=== PATIENT | female | born 1965 | race Caucasian/White ===

== ENCOUNTER 2016-12-31 08:52 | Inpatient (IN) | payer MEDICAID, OTHER ==
[~2016-12-31] VITALS: Wt 80.0 kg
[2016-12-31] MEDS ORDERED: NITROGLYCERIN 2% 1 GM OINT PKT TD STA (09:32)
[2016-12-31] MEDS ORDERED: FERR325C PO (09:57)
[2016-12-31] MEDS ORDERED: OMEP40CA6 PO (09:57)
--- NOTE | 2016-12-31 09:57 | RADRPT ---
PROCEDURE: XR Chest AP portable CLINICAL INDICATION: Chest pain TECHNIQUE: An AP portable radiograph of the chest was submitted. COMPARISON: None. FINDINGS: Support Hardware: None Cardiovascular: The cardiovascular silhouette appears unremarkable. Lung Solo: The lung solo appear clear with no nodule, alveolar infiltrate, or interstitial promi nence evident. Pleural Spaces: No pneumothorax or pleural effusion is identified. Osseous Structures: The osseous structures appear intact. Soft Tissues: The soft tissues appear generous. IMPRESSION: Unremarkable portable chest. Physician Cornell Date Time Electronically viewed and signed by Hayley Drummond Physician on 12/31/2016 09:57 RH/
[2016-12-31] MEDS ORDERED: FLUT16SP17 NASAL (09:58)
[2016-12-31] MEDS ORDERED: INSU100C SQ (09:58)
[2016-12-31] MEDS ORDERED: GLIP-95 PO (09:59)
[2016-12-31] MEDS ORDERED: LANT3I SC (09:59)
[2016-12-31] MEDS ORDERED: ATOR20TA38 PO (10:00)
[2016-12-31] MEDS ORDERED: MTF1000T PO (10:00)
[2016-12-31] MEDS ORDERED: NITROGLYCERIN (SL) 0.4 MG TAB SL PRN ×2 (10:00→15:30)
[2016-12-31] MEDS ORDERED: LOSA1TAB21 PO (10:03)
[2016-12-31 10:17] LABS: ADD SCAN DIFF NO
[2016-12-31 10:21] LABS: BASOPHILS % 0.3 % (0.0-2.0); EOSINOPHILS # 0.2 10^3/ul (0.0-0.5); EOSINOPHILS % 1.9 % (0.0-7.0); HEMATOCRIT 34.6 % (37.0-47.0); HEMOGLOBIN 10.4 g/dl (12.0-16.0); LYMPHOCYTES # 2.1 10^3/ul (0.8-2.9); LYMPHOCYTES % 26.6 % (15.0-51.0); MEAN CORPUSCULAR HEMOGLOBIN 22.5 pg (29.0-33.0); MEAN CORPUSCULAR HGB CONC 30.1 g/dl (32.0-37.0); MEAN CORPUSCULAR VOLUME 74.7 fl (82.0-101.0); MEAN PLATELET VOLUME 10.6 fl (7.4-10.4); MONOCYTE # 0.6 10^3/ul (0.3-0.9); MONOCYTES % 8.1 % (0.0-11.0); NEUTROPHIL # 4.9 10^3/ul (1.6-7.5); NEUTROPHILS % 62.5 % (39.0-77.0); PLATELET COUNT 361 10^3/UL (140-415); RED BLOOD COUNT 4.63 10^6/ul (4.20-5.40); RED CELL DISTRIBUTION WIDTH 14.3 % (11.5-14.5); WHITE BLOOD COUNT 7.9 10^3/ul (4.8-10.8)
--- NOTE | 2016-12-31 10:30 | RADRPT ---
PROCEDURE: CT Brain without contrast. CLINICAL INDICATION: Right face and arm numbness for 3 weeks. Headache TECHNIQUE: A multiplanar CT of the brain was performed on a CT scanner utilizing axial imaging fro m the skull base through the vertex without IV contrast. The CTDIvol is 39.15 mGy and the DLP is 55 4.95 mGycm. One or more of the following dose reduction techniques were utilized: Automated exposu re control, adjustment of the mA and/or kV according to patient size, use of iterative reconstructio n technique. COMPARISON: None FINDINGS: No evidence of intracranial hemorrhage or abnormal extra-axial fluid collection. The brain parenchyma is normal attenuation morphology with preservation of boyle white differentiatio n and age appropriate size of the ventricles and subarachnoid spaces. The basal cisterns, posterior fossa contents, brainstem, craniocervical junction, orbits, pituitary axis, paranasal sinuses, mastoid air cells, and calvarium are unremarkable. IMPRESSION: 1. No intracranial hemorrhage or acute intracranial abnormality. 2. Early ischemic injury may be occult to CT imaging and diffusion weighted MRI may be considered as clinically warranted. RPTAT:AAJJ Physician Imtiaz Date Time Electronically viewed and signed by Physician Imtiaz on 12/31/2016 10:30 CHU/
[2016-12-31 10:33] LABS: CHLORIDE 101 mmol/L (97-110); INR 0.99; PARTIAL THROMBOPLASTIN TIME 26.9 Sec (25.0-35.0); POTASSIUM 4.2 mmol/L (3.5-5.1); PROTIME 13.1 Sec (12.2-14.2); SODIUM 139 mmol/L (135-144)
[2016-12-31 10:35] LABS: CREATININE 0.43 mg/dl (0.44-1.00)
[2016-12-31 10:36] LABS: ANION GAP 15 (8-16); BLOOD UREA NITROGEN 11 mg/dl (7-20); CALCIUM 8.9 mg/dl (8.4-10.2); CARBON DIOXIDE 27 mmol/L (21-31); GLUCOSE 226 mg/dl (70-220)
[2016-12-31] MEDS ORDERED: ASPIRIN 81 MG TAB PO ONE (11:00)
[2016-12-31 11:02] LABS: TROPONIN-I < 0.010 ng/ml (0.00-0.12)
[2016-12-31] MEDS ORDERED: ACETAMINOPHEN 325 MG TAB PO PRN (11:30)
[2016-12-31] MEDS ORDERED: ONDANSETRON 4 MG INJ IV PRN (11:30)
--- NOTE | 2016-12-31 12:42 | ERA ---
ER Documentation Chief Complaint Date/Time DATE: 12/31/16 TIME: 12:39 Chief Complaint HEADACHE FOR 1 MONTH WITH R SIDE MENDOZA AND R EYE REDNESS. NO TRAUMA HPI Patient is a 51-year-old female with hypertension and diabetes who presents with chest pain and headache. 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 She also started with chest pain in the midsternal area which radiates to the left shoulder. Patient has no fevers. Her primary doctor is Dr. Joseph. ROS All systems reviewed and are negative except as per history of present illness. Medications Home Meds Reported Medications Losartan-Hydrochlorothiazide (Losartan-HCTZ) 100-12.5 Mg Tab, 1 TAB PO DAILY, TAB 12/31/16 Atorvastatin Calcium* (Atorvastatin Calcium*) 20 Mg Tablet, 20 MG PO QHS, #30 TAB 12/31/16 Metformin* (Glucophage*) 1,000 Mg Tablet, 1000 MG PO BID, #60 TAB 12/31/16 Glipizide* (Glipizide*) 10 Mg Tablet, 10 MG PO BID, TAB 12/31/16 Insulin Glargine* (Lantus*) 100 Unit/Ml Soln, 30 UNIT SC QHS, #1 VIAL 12/31/16 Fluticasone Propionate* (Fluticasone Propionate* Nasal) 50 Mcg/[place] - 16 Gm [place].susp, 1 SPRAY NASAL DAILY, #1 BOTTLE TO EACH NOSTRIL 12/31/16 Insulin Lispro (Humalog) 100 Unit/1 Ml Cartridge, 15 UNIT SQ TID 12/31/16 Omeprazole* (Omeprazole*) 40 Mg Capsule.dr, 40 MG PO DAILY, #30 CAP 12/31/16 Ferrous Sulfate (Iron) 325 Mg Capsule.er, 325 MG PO DAILY, CAP 12/31/16 Allergies Allergies: Coded Allergies: No Known Allergy (Unverified , 12/31/16) PMhx/Soc Medical and Surgical Hx: pt denies Surgical Hx History of Surgery: No Hx Cardiac Disorders: Yes (HTN) Hx Miscellaneous Medical Probl: Yes (DM) Hx Alcohol Use: No Hx Substance Use: No Hx Tobacco Use: No Smoking Status: Never smoker FmHx Family History: coronary disease Physical Exam Vitals Vital Signs Date Time Temp Pulse Resp B/P Pulse Ox O2 Delivery O2 Flow Rate FiO2 12/31/16 08:56 98.4 63 20 209/100 100 Physical Exam Const: Mild distress Head: Atraumatic Eyes: Normal Conjunctiva ENT: Normal External Ears, Nose and Mouth. Neck: Full range of motion..~ No meningismus. Resp: Clear to auscultation bilaterally Cardio: Regular rate and rhythm, no murmurs Abd: Soft, non tender, non distended. Normal bowel sounds Skin: No petechiae or rashes Back: No midline or flank tenderness Ext: No cyanosis, or edema Neur: Awake and alert Psych: Normal Mood and Affect Result Diagram: 12/31/1610 12/31/1610 Results 24 hrs Laboratory Tests Test 12/31/16 09:10 Activated Partial Thromboplast Time 26.9Sec Anion Gap 15 Basophils # 0.010^3/ul Basophils % 0.3% Blood Urea Nitrogen 11mg/dl Calcium Level 8.9mg/dl Carbon Dioxide Level 27mmol/L Chloride Level 101mmol/L Creatinine 0.43mg/dl Eosinophils # 0.210^3/ul Eosinophils % 1.9% Glucose Level 226mg/dl Hematocrit 34.6% Hemoglobin 10.4g/dl INR International Normalized Ratio 0.99 Lymphocytes # 2.110^3/ul Lymphocytes % 26.6% Mean Corpuscular Hemoglobin 22.5pg Mean Corpuscular Hemoglobin Concent 30.1g/dl Mean Corpuscular Volume 74.7fl Mean Platelet Volume 10.6fl Monocytes # 0.610^3/ul Monocytes % 8.1% Neutrophils # 4.910^3/ul Neutrophils % 62.5% Nucleated Red Blood Cells # 0.010^3/ul Nucleated Red Blood Cells % 0.0/100WBC Platelet Count 83511^3/UL Potassium Level 4.2mmol/L Prothrombin Time 13.1Sec Prothrombin Time Ratio 1.0 Red Blood Count 4.6310^6/ul Red Cell Distribution Width 14.3% Sodium Level 139mmol/L Troponin I < 0.010ng/ml White Blood Count 7.910^3/ul Current Medications Medications (Trade) Dose Ordered Sig/Cassy Route PRN Reason Start Time Stop Time Status Last Admin Dose Admin Nitroglycerin (Nitroglycerin 2% Oint) 1 inch ONCE STAT TD 12/31/16 09:32 12/31/16 09:33 DC 12/31/16 09:55 Nitroglycerin (Nitroglycerin (Sl Tab) 0.4 Mg) 1 tab Q5M UP TO 3 DOSES PRN SL CHEST PAIN 12/31/16 10:00 Aspirin (Aspirin) 162 mg ONCE ONCE PO 12/31/16 11:00 12/31/16 11:01 DC 12/31/16 11:12 Ondansetron HCl (Zofran Inj) 4 mg ER BRIDGE PRN IV NAUSEA AND/OR VOMITING 12/31/16 11:30 01/01/17 11:29 Acetaminophen (Tylenol Tab) 650 mg ER BRIDGE PRN PO MILD PAIN/FEVER 12/31/16 11:30 01/01/17 11:29 Procedures/MDM EKG #1 read by me: Rate/Rhythm: Regular rate and rhythm at a rate of 59 Intervals: Normal Impression: Sinus bradycardia without ischemia EKG #2 pending at this time CT brain and chest x-ray negative per radiology. Patient is a 51-year-old female with cardiac risk factors who presents with chest pain and headache. I am concerned about possible acute coronary syndrome. The patient will be admitted to the panel team as she has preferred [employer] insurance. I spoke with Dr. Menon who will admit the patient. The patient was given aspirin and nitroglycerin. The patient will be admitted to a telemetry bed. She has hyperglycemia but no signs of diabetic ketoacidosis. She has anemia but does not require transfusion. At this point I doubt pneumonia, pneumothorax, pulmonary embolism, or aortic dissection. Departure Diagnosis: Primary Impression: Chest pain Qualified Code: R07.9 - Chest pain, unspecified type Additional Impression: Headache Qualified Code: R51 - Acute nonintractable headache, unspecified headache type Condition: BRIAN Costello MD Dec 31, 2016 12:42
[2016-12-31] MEDS ORDERED: ACETAMINOPHEN 650 MG SUPP PR PRN (15:30)
[2016-12-31] MEDS ORDERED: morphine 2 MG INJ IV PRN (15:30)
[2016-12-31] MEDS ORDERED: NACL 0.9% 3 ML SYG IV SCH (15:30)
[2016-12-31] MEDS ORDERED: ONDANSETRON 4 MG TAB PO PRN (15:30)
[2016-12-31] MEDS ORDERED: DOCUSATE SODIUM 100 MG CAP PO PRN (15:30)
[2016-12-31] MEDS ORDERED: HYDROCODONE/APAP (5/325) TAB PO PRN (15:30)
[2016-12-31 16:10] LABS: CREATINE KINASE 26 IU/L (23-200)
[2016-12-31 16:29] LABS: CK-MB < 0.22 ng/ml (0.0-2.4); TROPONIN-I < 0.010 ng/ml (0.00-0.12)
--- NOTE | 2016-12-31 16:38 | RADRPT ---
PROCEDURE: US Carotids. CLINICAL INDICATION: bruit , TIA, headache TECHNIQUE: Multiple sonographic of the carotid bifurcation region and vertebral arteries were obta ined utilizing boyle scale, duplex and color-flow imaging. The images were reviewed on a PACS worksta tion. COMPARISON: No prior studies are available for comparison. FINDINGS: Evaluation of the right carotid bifurcation region reveals no significant calcific atherosclerotic d isease. Evaluation of the left carotid bifurcation region reveals no significant calcific atherosclerotic di sease. There is antegrade flow within the vertebral arteries bilaterally. RIGHT CAROTID MEASUREMENTS: Common Carotid Apipgn43.1 (cm/sec) Internal Carotid Artery - ytpuifjw99.5 (cm/sec) Internal Carotid Artery - mid72.8 (cm/sec) Internal Carotid Artery - koqibe56.3 (cm/sec) Internal Carotid/Common Carotid1.49 LEFT CAROTID MEASUREMENTS: Common Carotid Ufcizg01.6 (cm/sec) Internal Carotid Artery - tzcylfxm40.2 (cm/sec) Internal Carotid Artery - mid55.8 (cm/sec) Internal Carotid Artery - esfhks44 (cm/sec) Internal Carotid/Common Carotid0.88 RPTAT: AA IMPRESSION: No evidence for hemodynamically significant stenosis in the bilateral internal carotid arteries - va lidated velocity measurements with angiographic measurements, velocity criteria are extrapolated fro m diameter data as defined by the Society of Radiologists in Ultrasound Consensus Conference Radiolo gy 2003; 229;340-346. This study does indirectly reference the measurement of the distal ICA diamet er as the denominator for stenosis measurement. Normal antegrade flow in the vertebral arteries bilaterally. .Derrick Love MD, Date Time Electronically viewed and signed by .Derrick Love MD, MD on 12/31/2016 16:38 .S/
[2016-12-31 17:00] VITALS: BP 185/88; PULSE 65; RESP 16
[2016-12-31 17:10] VITALS: PULSE 61
[2016-12-31] MEDS: metFORMIN 500 MG TAB PO SCH (17:55)
[2016-12-31] MEDS: INSULIN ASPART [NOVOLOG] 3 ML PEN SC SCH ×3 (17:55→21:51)
[2016-12-31] MEDS ORDERED: GLUCAGON 1 MG INJ IM PRN (18:00)
[2016-12-31] MEDS ORDERED: GLUCOSE GEL 15 GRAM TUBE BUCCAL PRN (18:00)
[2016-12-31] MEDS ORDERED: FERROUS SULFATE (EC) 325 MG TAB PO SCH (18:00)
[2016-12-31] MEDS: METOPROLOL 25 MG TAB PO SCH (18:00)
[2016-12-31] MEDS ORDERED: DEXTROSE 50% 50 ML SYRINGE IV PRN ×2 (18:00)
[2016-12-31] MEDS ORDERED: GLUCOSE GEL 15 GRAM TUBE PO PRN ×2 (18:00)
[2016-12-31 20:00] VITALS: BP 170/84; RESP 18
[2016-12-31 20:08] VITALS: PULSE 66
--- NOTE | 2016-12-31 20:43 | HP ---
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 CHIEF COMPLAINT: Right-sided headache and right eye pain. HISTORY OF PRESENT ILLNESS: This is a 51-year-old female with past medical history of hypertension, diabetes mellitus, dyslipidemia, morbid obesity, GERD, postnasal drip, anemia, who complained of coronado ving right-sided headache with eye discomfort without any change in visual acuity. Patient went to see her primary care physician, and he was not around today; therefore, she came to the emergency ro om at [facility]. She was found to have a negative troponin. EKG showed regular rhythm and rate of 59, normal sinus tachycardia without any ischemia. CT of the brain was obtained, which demonstrated no intracranial hemorrhage or acute intracranial abnormality, early ischemic inj ury maybe occult to the CT imaging and diffusion weight MRI may be considered. Patient was also fou nd to have blood pressure of 209/100 and was treated with aspirin and nitroglycerin during the cours e of the emergency room. At this time, patient denies having any chest pain, shortness of breath, n ausea, vomiting, diarrhea. She does complain of having headache without any change in visual acuity . No diplopia, no upper extremity weakness or loss of sensory. No shortness of breath, no abdomina l pain. No dysuria, hematuria, urgency, incontinence. No neck pain, no restricted range of motion in upper and lower extremity or any other discomfort. PAST MEDICAL AND SURGICAL HISTORY: As above per HPI. MEDICATIONS: 1. Lipitor 20 mg. 2. Ferrous sulfate 325 mg 3. Fluconazole 1 spray. 3. Glipizide 10 mg. 4. Losartan/hydrochlorothiazide 100/12.5. 5. Lantus 30 units. 6. Lispro 15 units. 7. Metformin 1000 mg. 8. Omeprazole 40 mg. ALLERGIES: NO KNOWN DRUG ALLERGIES. FAMILY HISTORY: Positive for hypertension, diabetes mellitus, or dyslipidemia. SOCIAL HISTORY: Negative x3 for smoking, alcohol, illicit drugs. REVIEW OF SYSTEMS: As above per HPI. Otherwise, the 12 review of systems has been found to be nega tive. PHYSICAL EXAMINATION: VITAL SIGNS: Temperature 98.4, pulse 71, respirations 18, blood pressure at this time 131/71, oxyge n saturation 98% in room air. GENERAL APPEARANCE: The patient is lying in bed comfortably without any distress. She is awake, al ert, oriented. She is able to answer my questions properly. Body habitus morbidly obese. EYES AND ENT: Conjunctivae are mildly red, but the right eye extraocular motor is normal. Pupils a re reactive to light bilaterally. Oral mucosa is moist. NECK: Supple. Trachea is midline. No lymphadenopathy. RESPIRATORY: Effort is normal. Clear to auscultation bilaterally. CARDIOVASCULAR: Normal S1, S2. Regular rhythm and rate. No murmurs; ____ no edema. Peripheral pu lses, radial pulses palpable. Cap refill is normal. CHEST: Normal expansion of thorax during inspiration. GASTROINTESTINAL: Abdomen is soft, nontender, not distended. Bowel sounds present. No guarding, n o rebound. GENITOURINARY: Deferred. MUSCULOSKELETAL: Upper and lower extremities within normal limits. Full range of motion. Strength 5/5 in both upper and lower extremities. NEUROLOGIC: Cranial nerves II through XII grossly intact. PSYCHIATRIC: She is awake, alert, oriented. LABORATORY WORK AND IMAGING: Sodium 139, potassium 4.2, chloride 101, bicarbonate 27, BUN 11, creat inine 0.42, glucose 226, calcium 8.9. Troponin negative. WBC 7.9, hemoglobin 10.5, hematocrit 34.6 , platelets 361, MCV 74.7. ASSESSMENT AND PLAN: 1. Atypical chest pain with history of diabetes mellitus, hypertension, dyslipidemia. We will obta in a 2D echocardiogram, serial troponin. Continue to monitor patient's blood pressure. Continue bl ood pressure medication and management. Patient has been started on aspirin. Continue statin. Fol low up lipid panel. 2. Intractable headache with a negative CT of the ____. We will obtain MRI of the brain. Continue to monitor patient's blood pressure. 3. Dyslipidemia. Continue statin. 4. Diabetes mellitus. Continue Lantus and insulin sliding scale, low carbohydrate diet. 5. Gastroesophageal reflux disease. Continue proton pump inhibitor. 6. Microcytic anemia. Follow up iron panel. Continue ferrous sulfate. 7. For deep venous thrombosis prophylaxis, on Lovenox. 8. Will continue to monitor patient closely. Further recommendations, management, and treatment as per clinical course. Dictated By: JB ADAMS/SHERRIE Conf#: [id number] DID#: [id number]
[2016-12-31] MEDS ORDERED: INSULIN GLARGINE [LANtus] 3 ML PEN SC SCH (21:00)
[2016-12-31] MEDS ORDERED: ATORVASTATIN 20 MG TAB PO SCH (21:00)
[2016-12-31] MEDS: ACETAMINOPHEN 325 MG TAB PO PRN (22:43)
[2016-12-31 22:50] LABS: CREATINE KINASE 28 IU/L (23-200)
[2016-12-31 23:09] LABS: CK-MB < 0.22 ng/ml (0.0-2.4)
[2016-12-31 23:10] LABS: TROPONIN-I < 0.012 ng/ml (0.00-0.12)
[2016-12-31 23:41] VITALS: PULSE 54
[2017-01-01] VITALS (9 sets, daily range): BP systolic 134–155; BP diastolic 63–82; PULSE 48–71; RESP 18–19
[2017-01-01 03:22] LABS: ADD SCAN DIFF NO
[2017-01-01 03:24] LABS: BASOPHILS % 0.2 % (0.0-2.0); EOSINOPHILS # 0.2 10^3/ul (0.0-0.5); EOSINOPHILS % 2.8 % (0.0-7.0); HEMOGLOBIN 9.5 g/dl (12.0-16.0); LYMPHOCYTES # 2.8 10^3/ul (0.8-2.9); LYMPHOCYTES % 32.1 % (15.0-51.0); MEAN CORPUSCULAR HEMOGLOBIN 22.6 pg (29.0-33.0); MEAN CORPUSCULAR HGB CONC 30.6 g/dl (32.0-37.0); MEAN CORPUSCULAR VOLUME 73.8 fl (82.0-101.0); MEAN PLATELET VOLUME 9.4 fl (7.4-10.4); MONOCYTE # 0.8 10^3/ul (0.3-0.9); MONOCYTES % 9.3 % (0.0-11.0); NEUTROPHIL # 4.7 10^3/ul (1.6-7.5); NEUTROPHILS % 55.1 % (39.0-77.0); PLATELET COUNT 311 10^3/UL (140-415); RED CELL DISTRIBUTION WIDTH 14.5 % (11.5-14.5); WHITE BLOOD COUNT 8.6 10^3/ul (4.8-10.8)
[2017-01-01 03:54] LABS: POTASSIUM 4.1 mmol/L (3.5-5.1)
[2017-01-01 03:56] LABS: CREATININE 0.47 mg/dl (0.44-1.00)
[2017-01-01 03:57] LABS: CALCIUM 8.9 mg/dl (8.4-10.2); CHOL/HDL RATIO 5.1 RATIO; IRON 21 ug/dl (35-150)
[2017-01-01 03:58] LABS: CREATINE KINASE 26 IU/L (23-200)
[2017-01-01 04:07] LABS: TOTAL IRON BINDING CAPACITY 470 ug/dl (241-421)
[2017-01-01 04:23] LABS: CK-MB < 0.22 ng/ml (0.0-2.4); TROPONIN-I < 0.012 ng/ml (0.00-0.12)
[2017-01-01 05:45] LABS: THYROID STIMULATING HORMONE 4.47 MIU/L (0.465-4.680)
[2017-01-01] MEDS: METOPROLOL 25 MG TAB PO SCH ×2 (05:59→17:52)
[2017-01-01] MEDS ORDERED: PANTOPRAZOLE (EC) 40 MG TAB PO SCH (06:00)
--- NOTE | 2017-01-01 07:05 | CONS ---
DATE OF ADMISSION: 12/31/2016 DATE OF CONSULTATION: 12/31/2016 TYPE OF CONSULTATION: Cardiology. REASON FOR CONSULTATION: Chest pain. CHIEF COMPLAINT: Headache, right eye redness and chest pain. HISTORY OF PRESENT ILLNESS: Thank you for this referral. History obtained from the patient and dis cussion with the staff. This is a 51-year-old female with diabetes, hypertension, dyslipidemia who came to emergency room with above complaint. The patient states that apparently has had for the pas t couple of months intermittent chest pain and pressure anteriorly. Could not explain exacerbating factors to me. Also has had headache. Mostly on the right side, also right eye redness. The patie nt has had severe hypertension in the emergency room, initial blood pressure was 209/100. The patie nt said that she is taking her medication and currently is feeling better. PAST MEDICAL HISTORY: History of hypertension, diabetes, dyslipidemia. SOCIAL HISTORY: The patient does not smoke or drink. FAMILY HISTORY: Denies any coronary artery disease. MEDICATIONS: As per medical reconciliation, personally reviewed. ALLERGIES: NO REPORTED ALLERGIES. REVIEW OF SYSTEMS: As above mentioned. PHYSICAL EXAMINATION: VITAL SIGNS: Temperature 98.4, heart rate of 71, blood pressure most recently was 131/70, respirati on rate of 18, saturating 98%. HEENT: Normocephalic, atraumatic. GENERAL: No acute distress. Pupils are equal. Right eye erythema noted. CARDIOVASCULAR: Regular rate and rhythm, systolic murmur. PULMONARY: With no wheezes or rhonchi. GASTROINTESTINAL: Obese, soft, nontender. EXTREMITIES: No significant edema. NEUROLOGIC: Awake and alert. PSYCHIATRIC: Appears to be calm, pleasant. LABORATORY: Sodium 139, potassium 4.2, BUN of 11, creatinine 0.43, glucose of 226. Troponin less t jalloh 0.01. WBC of 7.9, hemoglobin 10.4, platelet 361. EKG was personally reviewed, which showed nor mal sinus rhythm, no evidence of ischemia. Chest x-ray by Radiology report showed no acute cardiopulmonary disease, unremarkable. portable lyla st. Cardiovascular silhouette also appears unremarkable. ASSESSMENT AND PLAN 1. Chest pain syndrome, rule out acute coronary syndrome. 2. Hypertension. 3. Diabetes. 4. Dyslipidemia. 5. Anemia. RECOMMENDATIONS: I will start the patient on metoprolol. Blood pressure is currently better contro lled. Diabetes, managed as per internal medicine. I will order a CT coronary angiogram to rule out significant obstructive coronary artery disease. Dictated By: GUSTABO LEVINE MD AV/SHERRIE Conf#: [id number] DID#: [id number] CC: JB PACHECO MD;*EndCC*
[2017-01-01] MEDS: metFORMIN 500 MG TAB PO SCH ×2 (08:30→17:47)
[2017-01-01] MEDS: INSULIN ASPART [NOVOLOG] 3 ML PEN SC SCH ×6 (08:37→17:46)
[2017-01-01] MEDS ORDERED: ASPIRIN 81 MG TAB PO SCH (09:00)
[2017-01-01] MEDS ORDERED: NON-FORMULARY/PATIENT OWN MED (Losartan-Hydrochlorothiazide (Losartan-HCTZ) 1 TAB) PO SCH (09:00)
[2017-01-01] MEDS ORDERED: HYDROCHLOROTHIAZIDE 12.5 MG CAP PO SCH (09:00)
[2017-01-01] MEDS ORDERED: LOSARTAN 50 MG TAB PO SCH (09:00)
[2017-01-01] MEDS ORDERED: ENOXAPARIN 40 MG/0.4 ML SYG SC SCH (09:00)
--- NOTE | 2017-01-01 11:24 | PDOCDIS ---
Discharge Instructions CONDITION Patient Condition: Good HOME CARE INSTRUCTIONS: Diet Instructions: Low Fat /Cholesterol ACTIVITY: Activity Restrictions: No Restrictions FOLLOW UP/APPOINTMENTS Appointments Follow up with PCP as out-pt JB PACHECO MD Jan 01, 2017 11:24
[2017-01-01] MEDS ORDERED: METO-448 PO (11:27)
[2017-01-01] MEDS ORDERED: OLOP2.5D RIGHT EYE (11:31)
--- NOTE | 2017-01-01 12:17 | DS ---
DATE OF ADMISSION: 12/31/2016 DATE OF DISCHARGE: 01/01/2017 CONSULTANTS: [employer]. PROCEDURES: A 2D echocardiogram with normal ejection fraction. CTA of cardiac angiogram. DISCHARGE DIAGNOSES: 1. Atypical chest pain with history of diabetes mellitus, hypertension, dyslipidemia. Third tropon in was found to be negative. Acute coronary syndrome was ruled out by negative troponin and negativ e EKG. The patient has been started on aspirin. Continue statin. 2. Intractable headache with a negative CT of the head. 3. Dyslipidemia. Continue statin. 4. Diabetes mellitus. Continue Lantus and insulin sliding scale. 5. Gastroesophageal reflux disease. Continue proton pump inhibitor. 5. Microcytic anemia. Continue iron supplementation. HOSPITAL COURSE: This is a 51-year-old female with past medical history of hypertension, diabetes m ellitus, dyslipidemia, morbid obesity, GERD, post-nasal drip and anemia, who has been complaining of right sided headache with head discomfort, without any changes in visual acuity. The patient went to see her primary care physician, but he was not at his office today. Therefore, she came into the emergency room at [facility]. She was found to have negative troponin. EKG show ed regular rhythm and rate, normal sinus rhythm, ventricular rate of 59. CT of the brain was obtain ed which demonstrated no intracranial hemorrhage or acute intracranial abnormality. The patient was started on aspirin, continued on her home medication. Continued on statin. Patient's triglyceride was found to be mildly elevated. This is likely secondary to uncontrolled diabetes mellitus. Her triglycerides were 783, blood glucose was 171, ALT 41, HDL 33. TSH 4.4700, serial troponin was foun d to be negative. Patient was found to have iron deficiency anemia with total iron 21, TIBC 470, ir on saturation 4, ferritin 6.0. After evaluation by cardiology, the patient had a 2D echocardiogram and was continued on aggressive medical management. CT angiogram was obtained. At this time, the p atient is medically stable to be discharged home with a close followup with primary care physician a s outpatient. Dictated By: JB PACHECO MD PN/NTS Conf#: [id number] DID#: [id number]
[2017-01-01] MEDS ORDERED: SOD CHLORIDE 0.9% 100 ML ONE (15:00)
[2017-01-01] MEDS ORDERED: IOHEXOL 100 ML ONE (15:00)
[2017-01-01] MEDS ORDERED: IOHEXOL 350MG/ML 50 ML BTL ONE (15:00)
[2017-01-01] MEDS ORDERED: NITROGLYCERIN AEROSOL (4.9 GM) ONE (15:06)
--- NOTE | 2017-01-01 15:45 | RADRPT ---
Echocardiogram Report Patient Name: IRMA MIGUEL Gender: Female Date: 1965 Study Date: 01-Jan-2017 Interpretive Program Coordinator: Prosper Hurtado [facility] Location: [address] Ref. Physician: JB PACHECO Quality: Good Procedures: Transthoracic echocardiogram with complete 2D, M-Mode, and doppler examination. Indications: Chest Pain. 2D/M Mode Doppler Measurement Value Normal Ranges Measurement Value Normal Ranges LVIDd 2D 5.3 3.5 - 5.6 cm AV Peak Lavon 1.4 m/sec LVIDs 2D 3.6 2.1 - 4.1 cm AV Peak PG 8.4 mmHg LVPWd 2D 1.0 0.6 - 1.1 cm LVOT Peak [place] 1.0 m/sec IVSd 2D 1.0 0.6 - 1.1 cm LVOT Peak PG 3.9 mmHg AoR Diam 2D 3.1 2.0 - 3.7 cm MV E Peak [place]on 0.9 m/sec EDV 2D 136.4 cm3 MV A Peak Lavon 0.8 m/sec ESV 2D 45.9 cm3 MV E/A 1.0 LA Dimen 2D 3.4 2.3 - 4.0 cm MV Decel Time 263 msec MV Decel Woods 3 MV E/A 1.0 TR Peak Lavon 2.0 m/sec TR Peak PG 16.2 mmHg RVSP 19.0 mmHg Findings Left Ventricle: Normal left ventricular systolic function. Normal left ventricular cavity size. Normal left ventricular wall thickness. Ejection fraction is visually estimated at 65 %. Right Ventricle: Normal right ventricular size. Normal right ventricular systolic function. Left Atrium: The left atrium is normal in size. Right Atrium: The right atrium is normal in size. Mitral Valve: Mild mitral annular calcification. Trace mitral regurgitation. Aortic Valve: Normal appearance of the aortic valve. No significant aortic stenosis or insufficiency. Tricuspid Valve: Normal appearance and function of the tricuspid valve with trace physiologic regurgitation. Estimated peak PA systolic pressure 19 mmHg. Pulmonic Valve: Normal pulmonic valve appearance. Pericardium: Normal pericardium with no significant pericardial effusion. Aorta: Normal aortic root. IVC: Normal size and normal respiratory collapse consistent with normal right atrial pressure. Conclusions 1.Normal left ventricular systolic function. Normal left ventricular cavity size. Normal left ventricular wall thickness. Ejection fraction is visually estimated at 65 %. 2.Mild mitral annular calcification. Trace mitral regurgitation. 3.Normal appearance of the aortic valve. No significant aortic stenosis or insufficiency. 4.Normal appearance and function of the tricuspid valve with trace physiologic regurgitation. Estimated peak PA systolic pressure 19 mmHg. Electronically Signed By: Jose Atwood 01-Jan-2017 15:44:34 -0800 Patient Name: IRMA MIGUEL Study Date: 01-Jan-2017 [id number]
--- NOTE | 2017-01-01 16:21 | PN ---
DATE: 01/01/2017 CARDIOLOGY FOLLOWUP SUBJECTIVE: Patient with no chest pain or pressure. Discussed with the staff. She remained in sin us rhythm, blood pressure has improved. MEDICATIONS: Reviewed. PHYSICAL EXAMINATION: VITAL SIGNS: Temperature 98.5, heart rate of 49, blood pressure 130/65, respiration 18. HEENT: Normocephalic, atraumatic. Pupils are equal. CARDIOVASCULAR: Regular rate and rhythm. PULMONARY: With no wheezes. GASTROINTESTINAL: Soft. EXTREMITIES: No edema. NEUROLOGIC: Awake and alert. LABORATORY: Troponins have been negative x4, HDL 33, LDL 41, triglycerides 483. Echocardiogram was personally reviewed, which showed normal LV size and systolic function. ASSESSMENT AND PLAN 1. Chest pain syndrome, rule acute coronary syndrome, hypertension, currently better controlled. 2. Diabetes. 3. Dyslipidemia. 4. Anemia. RECOMMENDATIONS: CT coronary angiogram has been ordered to be done. Continue with the rest of her cardiac care. Blood pressure is better controlled. Dictated By: GUSTABO LEVINE MD AV/NTS Conf#: [id number] DID#: [id number] CC: JB PACHECO MD;*EndCC*
--- NOTE | 2017-01-01 16:28 | RADRPT ---
PROCEDURE: CTA OF THE HEART AND CORONARY ARTERIES WITH CONTRAST CT CALCIUM SCORE CLINICAL INDICATION: Chest pain COMPARISON: No previous relevant images are available for comparison. TECHNIQUE: CT calcium score performed without intravenous contrast. Multiphasic ECG-gated volumetri c acquisition from the ascending aorta to the diaphragm performed with intravenous contrast on a hig h-resolution multi detector scanner with multiphasic reconstructions. Multiplanar reconstructions, t hree-dimensional reconstructions, as well as maximal intensity projection images are produced and re viewed. One or more of the following dose reduction techniques were used: Automated exposure control ; Adjustment of the mA and/or kV according to patient size; Use of iterative reconstruction techniqu e; ECG dose modulation. CTDI = 8, 93, 75 mGy. DLP = 1344 mGy-cm. Stenosis classification of vessels greater than 1.5 mm in diameter: None0% Minimal1-24% Jhwy14-35% Aitgetzb60-59% Zlgpdn81-14% Qsrdykwq451% (When a vessel appears focally occluded with distal reconstitution there may be trac e patency which is below the resolution of the examination or collateral pathways may exist.) CONTRAST: 100 mL of Omnipaque 350 intravenously without adverse event. FINDINGS: CORONARY CT ANGIOGRAM: Overall quality of the CT angiographic examination is degraded due to poor bolus geometry with peak aortic enhancement of 215 HU. Normal origins of the coronary arteries are present. The coronary artery system is right dominant. Total calcium score: 0 Right Coronary Artery: Widely patent without focal irregularity, mural plaque, or significant stenos is. Posterior descending and posterior lateral coronary artery branches are widely patent. Left Main Coronary Artery: Widely patent without focal irregularity, mural plaque, or significant st enosis. Left Anterior Descending Coronary Artery: A small plaque is present within the proximal segment of v essel which does not produce any stenosis. The mid and distal portions of the vessel are widely pat ent. Visualized septal and diagonal branches: Widely patent without focal irregularity, mural plaque, or significant stenosis. Left Circumflex Coronary Artery: Widely patent without focal irregularity, mural plaque, or signific ant stenosis. Visualized obtuse marginal branches: Widely patent throughout, without focal significant stenosis. Normal appearance of the pericardium. No pericardial effusion. Minimal multichamber cardiomegaly is evident. Normal appearing trileaflet aortic valve. Normal appearance of the mitral valve. Myocardial attenuation appears within normal limits. Left atrial appendage is well opacified. No evidence of intracardiac mass or thrombus. EXTRACARDIAC FINDINGS: Thoracic aorta: Normal caliber. Pulmonary vessels: The central and proximal pulmonary arterial system is of normal caliber without i ntraluminal filling defect to suggest pulmonary embolic disease. Conventional pulmonary venous retur n. Chest: 6 mm bleb is noted within the right lower lobe. No acute air space infiltrates. Lungs other casas normal in appearance. No mediastinal lymphadenopathy. Abdomen: Incidental imaging of the upper abdomen is unremarkable. IMPRESSION: Total calcium score: 0 Right Coronary Artery: Widely patent without focal irregularity, mural plaque, or significant stenos is. Left Main Coronary Artery: Widely patent without focal irregularity, mural plaque, or significant st enosis. Left Anterior Descending Coronary Artery: A small plaque is present within the proximal segment of v essel which does not produce any stenosis. The mid and distal portions of the vessel are widely pat ent. Left Circumflex Coronary Artery: Widely patent without focal irregularity, mural plaque, or signific ant stenosis. RPTAT: AADD .Jericho Chavez MD, MD Date Time Electronically viewed and signed by .Jericho Chavez MD, MD on 01/01/2017 16:27 .B/
--- NOTE | 2017-01-01 16:51 | RADRPT ---
PROCEDURE: MRI Brain without contrast. CLINICAL INDICATION: Headaches TECHNIQUE: Multiplanar MRI of the brain without contrast was performed on a 3.0 T scanner with the following sequences obtained: T1-weighted, T2-weighted/FLAIR, diffusion weighted (with ADC map), GR E. COMPARISON: CT brain 12/31/2016 FINDINGS: No acute/recent ischemic infarction or intracranial hemorrhage / blood degradation products are iden tified. No extra-axial fluid collection is seen. There is no mass effect. No midline shift is identified. The ventricles and sulci are within normal limits for size and configuration. There is a punctate focus of susceptibility in the anterior left insula, corresponding to calcificat ion on CT. There is a minimal focus of increased T2-weighted FLAIR signal intensity in the right fr ontal deep white matter. Flow voids are identified in the proximal intracranial arteries and dural sinuses suggesting patency . The mastoid air cells and paranasal sinuses are grossly clear. IMPRESSION: 1. No evidence of acute intracranial pathology. 2. Minimal nonspecific white matter change, which may reflect chronic small vessel ischemic change, possibly sequela of complicated migraines. 3. 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 RPTAT: VV .Sergio Keyes MD, Date Time Electronically viewed and signed by .Sergio Keyes MD, on 01/01/2017 16:50 .O/
[2017-01-01] MEDS: ACETAMINOPHEN 325 MG TAB PO PRN (17:47)
== END 2017-01-01 19:00 | disposition home or self-care (01) | DRG 313 ==
LOC: E/R 08:52 → TEL 11:09
PROVIDERS: ADMIT Internal Medicine; ATTEND Internal Medicine
DX: R07.89 Other chest pain (principal); I10 Essential (primary) hypertension; E66.01 Morbid (severe) obesity due to excess calories; E78.5 Hyperlipidemia, unspecified; E11.9 Type 2 diabetes mellitus without complications; D64.9 Anemia, unspecified; R51 Headache; K21.9 Gastro-esophageal reflux disease without esophagitis; H57.11 Ocular pain, right eye
CPT/HCPCS: 36415; 70450; 70551; 71010; 75571; 75574; 80048; 80061; 82550; 82553; 82728; 82962; 83540; 83735; 84443; 84484; 85025; 85610; 85730; 93005; 93306; 93880; J1650; J1815; Q9967

== ENCOUNTER 2017-11-28 11:15 | Day surgery (SDC) | END 2017-11-28 15:56 | disposition home or self-care (01) ==

== ENCOUNTER 2019-02-05 10:43 | Emergency (ER) | payer OTHER ==
[~2019-02-05] VITALS: Ht 162.6 cm; Wt 81.5 kg
[~2019-02-05 10:43] MED LIST: ATOR20TA38 PO; FERR325C PO; GLIP10TA14 PO; INSU100C SQ; LANT3I SC; LOSA1TAB28 PO; METO-448 PO; MTF1000T PO; OLOP2.5D RIGHT EYE; OMEP40CA6 PO
[2019-02-05 10:55] VITALS: Ht 162.6 cm; Wt 81.5 kg
[2019-02-05] MEDS ORDERED: ONDANSETRON 4 MG INJ IV STA (13:07)
[2019-02-05] MEDS ORDERED: SOD CHLORIDE 0.9% 1,000 ML IV STA (13:07)
[2019-02-05] MEDS ORDERED: morphine 2 MG INJ IV STA (13:07)
[2019-02-05] MEDS ORDERED: ONDA8TAB14 PO (16:34)
[2019-02-05] MEDS ORDERED: TRAM50TA2 PO (16:34)
[2019-02-05] MEDS ORDERED: ACET500C5 PO (16:34)
[2019-02-05] MEDS ORDERED: KETOROLAC 15 MG INJ IV STA (16:35)
--- NOTE | 2019-02-05 16:37 | ERD ---
ER Documentation Chief Complaint Chief Complaint left side abd pain, headache,nauseated x 3 days HPI 53-year-old female presents with bitemporal headache, nausea and left mid abdominal pain for last 3 days. She has vomiting. She denies hematuria, dysuria. She denies right-sided abdominal pain. ROS All systems reviewed and are negative except as per history of present illness. Medications Home Meds Active Scripts Ondansetron (Ondansetron Odt) 8 Mg Tab.rapdis, 8 MG PO Q6H PRN for NAUSEA AND/OR VOMITING, #10 TAB Prov:MARINA PIERCE MD 02/05/19 Tramadol HCl (Tramadol HCl) 50 Mg Tablet, 50 MG PO Q4 PRN for PAIN, #15 TAB Prov:MARINA PIERCE MD 02/05/19 Acetaminophen* (Tylophen*) 500 Mg Capsule, 1 CAP PO Q6H PRN for PAIN AND OR ELEVATED TEMP, #20 CAP Prov:MARINA PIERCE MD 02/05/19 Olopatadine* (Pataday*) 0.2% - 2.5 Ml Drops, 1 DROP RIGHT EYE DAILY, #1 EA Prov:JB PACHECO MD 01/01/17 Metoprolol Tartrate* (Lopressor*) 25 Mg Tab, 12.5 MG PO BID, #60 TAB Prov:JB PACHECO MD 01/01/17 Reported Medications Losartan-Hydrochlorothiazide (Losartan-HCTZ) 100-12.5 Mg Tab, 1 TAB PO DAILY, TAB 12/31/16 Atorvastatin Calcium* (Atorvastatin Calcium*) 20 Mg Tablet, 20 MG PO QHS, #30 TAB 12/31/16 Metformin* (Glucophage*) 1,000 Mg Tablet, 1000 MG PO BID, #60 TAB 12/31/16 Glipizide* (Glipizide*) 10 Mg Tablet, 10 MG PO BID, TAB 12/31/16 Insulin Glargine* (Lantus*) 100 Unit/Ml Soln, 30 UNIT SC QHS, #1 VIAL 12/31/16 Insulin Lispro (Humalog) 100 Unit/1 Ml Cartridge, 15 UNIT SQ TID 12/31/16 Omeprazole* (Omeprazole*) 40 Mg Capsule.dr, 40 MG PO DAILY, #30 CAP 12/31/16 Ferrous Sulfate (Iron) 325 Mg Capsule.er, 325 MG PO DAILY, CAP 12/31/16 Allergies Allergies: Coded Allergies: No Known Allergy (Unverified , 02/05/19) PMhx/Soc History of Surgery: Yes (UTERINE SX. X 3) Anesthesia Reaction: No Hx Neurological Disorder: No Hx Respiratory Disorders: Yes (BRONCHITIS) Hx Cardiac Disorders: Yes (HEART ATTACK X 2 ) Hx Miscellaneous Medical Probl: Yes (HTN, CHOLESTEROL) Hx Alcohol Use: No Hx Substance Use: No Hx Tobacco Use: No FmHx Family History: No diabetes, No coronary disease, No other Physical Exam Vitals Vital Signs Date Temp Pulse Resp B/P (MAP) Pulse Ox O2 O2 Flow FiO2 Time Delivery Rate 02/05/19 98.4 72 16 119/58 97 Room Air 18:05 (78) 02/05/19 98.6 83 16 152/74 98 10:55 (100) Physical Exam Const: No acute distress Head: Atraumatic Eyes: Normal Conjunctiva ENT: Normal External Ears, Nose and Mouth. Neck: Full range of motion. No meningismus. Resp: Clear to auscultation bilaterally Cardio: Regular rate and rhythm, no murmurs Abd: Soft, mild left mid abdominal tenderness without rebound. No masses. No tenderness McBurney's point no Love sign. Non distended. Normal bowel sounds Skin: No petechiae or rashes Back: No midline or flank tenderness Ext: No cyanosis, or edema Neur: Awake and alert Psych: Normal Mood and Affect Result Diagram: 02/05/19 1330 02/05/19 1330 Results 24 hrs Laboratory Tests Test 02/05/19 13:25 02/05/19 13:30 Urine Color YELLOW Urine Clarity SLIGHTLY CLOUDY Urine pH 6.0 Urine Specific [place] 1.023 Urine Ketones TRACE mg/dL Urine Nitrite NEGATIVE mg/dL Urine Bilirubin NEGATIVE mg/dL Urine Urobilinogen NEGATIVE mg/dL Urine Leukocyte Esterase NEGATIVE Iraj/ul Urine Microscopic RBC 13 /HPF Urine Microscopic WBC 4 /HPF Urine Squamous Epithelial Cells FEW /HPF Urine Bacteria FEW /HPF Urine Mucus MODERATE /HPF Urine Hemoglobin 1+ mg/dL Urine Glucose 2+ mg/dL Urine Total Protein NEGATIVE mg/dl White Blood Count 9.4 10^3/ul Red Blood Count 4.64 10^6/ul Hemoglobin 11.4 g/dl Hematocrit 36.2 % Mean Corpuscular Volume 78.0 fl Mean Corpuscular Hemoglobin 24.6 pg Mean Corpuscular Hemoglobin Concent 31.5 g/dl Red Cell Distribution Width 14.9 % Platelet Count 324 10^3/UL Mean Platelet Volume 9.6 fl Immature Granulocytes % 0.500 % Neutrophils % 74.0 % Lymphocytes % 18.4 % Monocytes % 6.7 % Eosinophils % 0.1 % Basophils % 0.3 % Nucleated Red Blood Cells % 0.0 /100WBC Immature Granulocytes # 0.050 10^3/ul Neutrophils # 6.9 10^3/ul Lymphocytes # 1.7 10^3/ul Monocytes # 0.6 10^3/ul Eosinophils # 0.0 10^3/ul Basophils # 0.0 10^3/ul Nucleated Red Blood Cells # 0.0 10^3/ul Sodium Level 139 mmol/L Potassium Level 3.9 mmol/L Chloride Level 100 mmol/L Carbon Dioxide Level 24 mmol/L Anion Gap 15 Blood Urea Nitrogen 14 mg/dl Creatinine 0.46 mg/dl Est Glomerular Filtrat Rate mL/min > 60 mL/min Glucose Level 148 mg/dl Calcium Level 9.4 mg/dl Total Bilirubin 0.2 mg/dl Direct Bilirubin 0.00 mg/dl Indirect Bilirubin 0.2 mg/dl Aspartate Amino Transf (AST/SGOT) 24 IU/L Alanine Aminotransferase (ALT/SGPT) 24 IU/L Alkaline Phosphatase 90 IU/L Total Protein 8.2 g/dl Albumin 4.7 g/dl Globulin 3.50 g/dl Albumin/Globulin Ratio 1.34 Lipase 32 U/L Current Medications Medications Dose Sig/Cassy Start Time Status Last (Trade) Ordered Route PRN Stop Time Admin Dose Reason Admin Sodium 1,000 ml @ Q1H STAT 02/05/19 DC 02/05/19 Chloride 1,000 mls/hr IV 13:07 02/05/19 13:37 14:06 Morphine 2 mg ONCE STAT 02/05/19 DC 02/05/19 Sulfate IV 13:07 02/05/19 13:37 (morphine) 13:08 Ondansetron 4 mg ONCE STAT 02/05/19 DC 02/05/19 HCl (Zofran IV 13:07 02/05/19 13:37 Inj) 13:08 Ketorolac 15 mg ONCE STAT 02/05/19 DC 02/05/19 Tromethamine IV 16:35 02/05/19 16:53 (Toradol) 16:36 Procedures/MDM Patient presents with left mid abdominal pain and nausea for the last 3 days. She also has bitemporal headache. CBC shows no leukocytosis. There is mild anemia. CMP shows no significant abnormalities. His hemoglobin on urine without signs of infection, ketones, glucose. No evidence of metabolic acidosis. Given the uncertain cause of left mid abdominal pain and CT performed. PROCEDURE: CT Abdomen and Pelvis without intravenous contrast. CLINICAL INDICATION: abd pain . TECHNIQUE: CT scan of the abdomen and pelvis without intravenous contrast was performed on a multi-detector high-resolution CT scanner. Coronal and sagittal reformatted images were obtained from the axial source images. DICOM images are available. CTDIvol 17.43 mGy, and DLP 1064.41 mGy.cm. One or more of the following dose reduction techniques were used: - Automated exposure control. - Adjustment of the mA and/or kV according to patient size. - Use of iterative reconstruction technique. COMPARISON: None available FINDINGS: In the absence of intravenous contrast, the study constitutes a limited assessment of the solid organs, bowel and vessels. Lower thorax: Calcified granuloma of the lingula. Liver: Normal. Biliary: Cholelithiasis. No intrahepatic or extrahepatic biliary dilatation. Pancreas: Normal. Spleen: Normal. Adrenal Glands: Normal. Urinary: Renal cortical scarring of the mid right kidney, with adjacent 5 mm parenchymal calcification versus a stone. No evidence of hydronephrosis. The ureters and bladder, as visualized, are unremarkable. Gastrointestinal: Stomach, small bowel, and cone on unremarkable. Appendix size is at the upper limits of normal. Lymph nodes: Several prominent sub centimeter right lower mesenteric lymph nodes. There is a 18 x 15 mm nodule in the right lower quadrant adjacent to the appendix. Vascular: Normal. Peritoneum/mesentery: No free fluid or free air. Reproductive organs: Prominence of the endometrium . Prominent ovaries measuring over 3.1 cm, if the patient is postmenopausal Musculoskeletal: Degenerative changes of the spine. IMPRESSION: 1. There is a 15 x 18 mm soft tissue nodule in the right lower quadrant abdomen adjacent to the appendix. This may represent an enlarged lymph node or mesenteric neoplasm such as a peritoneal implant, carcinoid, or desmoid tumor. 2. Nonspecific prominent sub centimeter right lower quadrant mesenteric lymph nodes. 3. Appendix size is at upper limits of normal, without definite evidence of appendicitis. 4. Assuming the patient is postmenopausal, there is prominence of the endometrium and ovaries. Correlate clinically. If indicated, consider further evaluation with pelvic ultrasound 5. Cholelithiasis. 6. Right renal cortical scarring. RPTAT: HH Trevor Arias, Physician Date Time Electronically viewed and signed by Trevor Arias, Physician on 02/05/2019 16:26 HtN/ CC: MARINA PIERCE MD [phone] She has resolution of pain after Toradol, morphine and Zofran as well as resolution of nausea. Results discussed with patient. There is no identifiable acute abnormalities explain patient's left-sided abdominal pain. There is a notable lesion in the right abdomen but patient states that this is been followed by her primary doctor is a known lesion. She has gallstones but current signs or symptoms do not suggest biliary colic or cholecystitis or choledocholithiasis. No signs or symptoms to suggest appendicitis. Patient was treated with medication for pain, Zofran, and will be given reports to follow-up with primary doctor. She should return for fevers, vomiting despite treatment, right side abdominal pain, new worsening symptoms. She has no evidence of DKA, sepsis. The patient was stable with no new complaints during the ER course. Clinically, there is no current evidence to suggest meningitis, sepsis, acute abdomen, pneumonia, stroke, acute coronary syndrome, pulmonary embolism, aortic dissection or any other emergent condition appearing to require further evaluation or hospitalization. Patient counseled regarding my diagnostic impression and care plan. Prior to discharge all questions answered. Pt agrees with treatment plan and understands strict return precautions. Pt is instructed to follow up with primary care provider within 24-48 hours. Precautionary instructions provided including instructions to return to the ER if not improving or for any worsening or changing symptoms or concerns. Departure Diagnosis: Primary Impression: Vomiting Vomiting type: unspecified Vomiting Intractability: unspecified Nausea presence: unspecified Qualified Codes: R11.10 - Vomiting, unspecified Additional Impression: Abdominal pain Abdominal location: unspecified location Qualified Codes: R10.9 - Unspe cified abdominal pain Condition: Stable Patient Instructions: Abdominal Pain, Tumor, Uncertain Cause, Vomiting (6Y- Adult) Referrals: [facility] AHUMADA SAMUEL MD KOSARI, KAMBIZ M.D. LOMIS, THOMAS MD Additional Instructions: Va al christianson doctor/ specialista para mas evaluacon en el proximo semana. posiblem ente necesita autorizado de christianson doctor primario para specialista. Regresa para fiebre, o mas o nueva simptomas- FIEBRE, MAS VOMITO. MARINA PIERCE MD Feb 05, 2019 16:37
[2019-02-05 18:05] VITALS: BP 119/58; PULSE 72; RESP 16
== END 2019-02-05 18:07 | disposition home or self-care (01) ==
LOC: FTE 10:43
DX: R11.10 Vomiting, unspecified (principal); I10 Essential (primary) hypertension; Z79.4 Long term (current) use of insulin
CPT/HCPCS: 36415; 74176; 80053; 81001; 83690; 85025; 96361; 96374; 96375; J1885; J2270; J2405; J7030; Z7502